=== PATIENT | male | born 1980 | race Caucasian/White ===

== ENCOUNTER 2019-11-25 09:50 | Emergency (ER) | payer MEDICARE ==
[~2019-11-25] VITALS: Ht 182.9 cm; Wt 113.7 kg
[2019-11-25 10:16] VITALS: Ht 182.9 cm; Wt 113.7 kg
[2019-11-25] MEDS ORDERED: BAYER CHEWABLE81 MG PO (10:17)
[2019-11-25] MEDS ORDERED: LIPITOR20 MG PO (10:17)
[2019-11-25] MEDS ORDERED: PEPCID AC20 MG PO (10:17)
[2019-11-25] MEDS ORDERED: LOPRESSOR25 MG PO (10:17)
[2019-11-25 10:26] LABS: BASOPHILS 0.2 % (0-2); EOSINOPHILS 0.1 % (0-7); HEMATOCRIT 50.1 % (42.0-54.0); IMMATURE GRANULOCYTES 0.3 % (0-5); LYMPHOCYTES 10.3 % (15-50); MCHC 33.9 g/dL (31.0-37.0); MCV 88.5 fL (80.0-100.0); MEAN PLATELET VOLUME 10.7 fL (7.4-10.4); MONOCYTES 11.4 % (2-11); NEUTROPHILS 77.7 % (40-80); PLATELET COUNT 208 10x3/uL (130-400); RBC 5.66 10x6/uL (4.20-6.10); RDW 13.4 % (11.5-14.5); WBC 12.9 10x3/uL (4.8-10.8)
[2019-11-25 10:48] LABS: ANION GAP 15.1 mmol/L (8-16); BILIRUBIN - TOTAL 1.05 mg/dL (0.2-1.3); CALCIUM 8.8 mg/dL (8.5-10.1); CARBON DIOXIDE 23.5 mmol/L (21.0-32.0); CREATININE - SERUM 1.3 mg/dL (0.6-1.3); POTASSIUM - SERUM 3.6 mmol/L (3.5-5.1); PROTEIN - SERUM 7.5 g/dL (6.4-8.2)
[2019-11-25 11:01] LABS: BILIRUBIN NEGATIVE (NEGATIVE); KETONE LARGE mg/dL (NEGATIVE); NITRITE NEGATIVE (NEGATIVE); UROBILINOGEN 4 mg/dL (NORMAL)
[2019-11-25 11:05] LABS: BACTERIA FEW /hpf (NEGATIVE); EPITHELIAL CELLS 0-5 /hpf (0-5); RED CELLS - URINE NONE SEEN /hpf (0-5); WHITE CELLS - URINE RARE /hpf (NEGATIVE)
[2019-11-25] MEDS ORDERED: FLAGYL500 MG PO (11:44)
[2019-11-25] MEDS ORDERED: NORCO 7.5-3251 EACH GT (11:44)
[2019-11-25] MEDS ORDERED: CIPROFLOXACIN750 MG PO (11:44)
[2019-11-25 11:51] VITALS: BP 143/76
== END 2019-11-25 11:52 | disposition home or self-care (01) ==
LOC: D.ER 09:50
PROVIDERS: Emergency Medicine
DX: K57.32 Diverticulitis of large intestine without perforation or abscess without bleeding (principal); R10.9 Unspecified abdominal pain; R50.9 Fever, unspecified